=== PATIENT | female | born 1990 | race Two or more races ===

== ENCOUNTER → 2016-07-30 | Outpatient (CLI) | payer BC ==
[2016-07-30 13:24] LABS: HIV 1&2 ANTIBODY SCREEN Nonreactive (Nonreactive); HIV-1 p24 ANTIGEN Nonreactive (Nonreactive)
== END | disposition home or self-care (01) ==
LOC: CFH 10:36
PROVIDERS: ATTEND Registered Nurse
DX: Z34.91 Encounter for supervision of normal pregnancy, unspecified, first trimester (principal)
CPT/HCPCS: 36415; 81003; 85025; 86592; 86703; 86765; 86787; 86850; 86900; 87340; 87899; G0435

== ENCOUNTER 2016-08-26 22:54 | Outpatient (CLI) | payer BC ==
[2016-08-26 23:55] LABS: AMNI OBC PASS; AMNISURE NEGATIVE (NEGATIVE)
== END 2016-08-27 00:05 | disposition home or self-care (01) ==
LOC: LDOP 22:54
PROVIDERS: ATTEND Student in an Organized Health Care Education/Training Program
DX: O26.892 Other specified pregnancy related conditions, second trimester (principal); O46.92 Antepartum hemorrhage, unspecified, second trimester; R10.9 Unspecified abdominal pain; Z3A.23 23 weeks gestation of pregnancy
CPT/HCPCS: 59025; 84112; 99211; G0463

== ENCOUNTER 2017-08-05 12:10 | Emergency (ER) | payer BC, OTHER ==
[~2017-08-05] VITALS: Ht 177.8 cm; Wt 84.6 kg
[2017-08-05] MEDS ORDERED: SODIUM CHLORIDE FLUSH 10ML SYR IVF ONE (13:30)
[2017-08-05] MEDS ORDERED: MAALOX/HYOSCYAMINE/LIDOCAINE 45 ML BTL PO ONE (13:30)
[2017-08-05] MEDS ORDERED: ONDANSETRON ODT 8 MG PO ONE (13:30)
[2017-08-05] MEDS ORDERED: SODIUM CHLORIDE 0.9% 1,000ML IVBOLUS ONE (13:30)
[2017-08-05] MEDS ORDERED: FAMOTIDINE 20 MG/2 ML IVP ONE (13:30)
[2017-08-05 13:44] LABS: BASOPHILS # (AUTO) 0.01 x10^3/uL (0-0.1); BASOPHILS % (AUTO) 0 % (0-1); EOSINOPHILS # (AUTO) 0.16 x10^3/uL (0-0.4); EOSINOPHILS % (AUTO) 2 % (1-7); LYMPHOCYTES # (AUTO) 0.97 x10^3/uL (1-3.4); LYMPHOCYTES % (AUTO) 9 % (22-44); MD NO; MEAN CORPUSCULAR HEMOGLOBIN 30.9 pg (27.0-34.8); MEAN CORPUSCULAR HGB CONC 33.2 g/dL (32.4-35.8); MEAN CORPUSCULAR VOLUME 93.3 fL (80-100); MEAN PLATELET VOLUME 8.9 fL (7.4-10.4); MONOCYTES # (AUTO) 0.97 x10^3/uL (0.2-0.8); MONOCYTES % (AUTO) 9 % (2-9); NEUTROPHILS # (AUTO) 8.43 x10^3/uL (1.8-6.8); NEUTROPHILS % (AUTO) 80 % (42-75); PLATELET COUNT 270 x10^3/uL (130-400); RED BLOOD COUNT 4.49 x10^6/uL (3.82-5.3); RED CELL DISTRIBUTION WIDTH 12.8 % (9.6-15.2)
[2017-08-05 13:54] LABS: ALANINE AMINOTRANSFERASE 12 U/L (12-78); ALBUMIN 4.1 g/dL (3.4-5.0); ANION GAP 8 mmol/L (5-15); CALCIUM 9.4 mg/dL (8.5-10.1); CHLORIDE 108 mmol/L (98-107); CREATININE 0.94 mg/dL (0.55-1.02)
[2017-08-05] MEDS ORDERED: ONDANSETRON ODT 4 MG ONE (13:58)
[2017-08-05] MEDS ORDERED: MAALOX/HYOSCYAMINE/LIDOCAINE 45 ML BTL ONE (13:58)
[2017-08-05] MEDS ORDERED: FAMOTIDINE 20 MG/2 ML ONE (13:58)
[2017-08-05 13:59] LABS: ALKALINE PHOSPHATASE 104 U/L (45-117); BILIRUBIN,TOTAL 0.4 mg/dL (0.2-1.0); TOTAL PROTEIN 7.9 g/dL (6.4-8.2)
[2017-08-05] MEDS ORDERED: KETOROLAC 60 MG/2 ML IM ONE (14:30)
[2017-08-05 15:19] VITALS: BP 120/86
[2017-08-05 15:55] LABS: MICROSCOPIC INDICATED
[2017-08-05 16:11] LABS: CULTURE INDICATED? YES
== END 2017-08-05 16:15 | disposition home or self-care (01) ==
LOC: ED 15:45
DX: R10.13 Epigastric pain (principal)
CPT/HCPCS: 36415; 74021; 76700; 76830; 80053; 81001; 83690; 84703; 85025; 87086; 99285